=== PATIENT | male | born 1930 | race Two or more races ===

== ENCOUNTER → 2016-08-28 | Outpatient (CLI) | payer MEDICARE, MEDICAID ==
[2016-08-28 13:48] LABS: BUN 24 mg/dL (7-18)
[2016-08-28 13:53] LABS: GFR (ESTIMATED) 30 ML/MIN (>60)
== END ==
LOC: LAB 13:18 → MAY-LAB 13:19
PROVIDERS: Nurse Practitioner Family
DX: I48.91 Unspecified atrial fibrillation (principal); N18.4 Chronic kidney disease, stage 4 (severe)